=== PATIENT | female | born 1960 | race African-American/Black ===

== ENCOUNTER 2018-11-25 13:06 | Emergency (ER) | payer BC, OTHER ==
[~2018-11-25] VITALS: Ht 175.3 cm; Wt 96.0 kg
[2018-11-25] MEDS ORDERED: KETOROLAC 60MG/2ML VIAL IM ONE (13:45)
[2018-11-25 14:30] VITALS: BP 139/109
== END 2018-11-25 15:39 | disposition home or self-care (01) ==
LOC: ER 13:06
DX: M25.562 Pain in left knee (principal); M54.9 Dorsalgia, unspecified; J45.909 Unspecified asthma, uncomplicated; I10 Essential (primary) hypertension; W01.0XXA Fall on same level from slipping, tripping and stumbling without subsequent striking against object, initial encounter; X50.1XXA Overexertion from prolonged static or awkward postures, initial encounter; Y93.89 Activity, other specified; Y92.9 Unspecified place or not applicable; Z88.6 Allergy status to analgesic agent; Z87.891 Personal history of nicotine dependence; Z90.710 Acquired absence of both cervix and uterus; Z98.890 Other specified postprocedural states
CPT/HCPCS: 81025; 96372; 99283; J1885